=== PATIENT | female | born 1995 | race Caucasian/White ===

== ENCOUNTER → 2025-01-10 | Outpatient (CLI) | payer BC ==
[2025-01-15 14:28] LABS: HPV HIGH RISK BY TMA Not Detected; HPV SOURCE Cervical
== END ==
LOC: LAB SHORT 11:43 → LAB 11:43
PROVIDERS: Family Medicine
DX: Z12.4 Encounter for screening for malignant neoplasm of cervix (principal)
CPT/HCPCS: 87624; G0123

== ENCOUNTER → 2025-02-14 | Outpatient (CLI) | payer BC ==
[2025-02-16 03:24] LABS: APTIMA MEDIA TYPE Urine; C. TRACHOMATIS BY TMA Negative (Negative); N. GONORRHOEAE BY TMA Negative (Negative); SPECIMEN SOURCE Urine
== END | disposition home or self-care (01) ==
LOC: LAB 15:17 → LAB SHORT 15:17
PROVIDERS: Family Medicine
DX: Z34.01 Encounter for supervision of normal first pregnancy, first trimester (principal); Z3A.01 Less than 8 weeks gestation of pregnancy
CPT/HCPCS: 87086; 87491; 87591